=== PATIENT | female | born 1940 | race Caucasian/White ===

== ENCOUNTER 2017-01-16 15:20 | Observation (INO) | payer OTHER ==
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
[2017-01-16 15:40] LABS: PLATELET COUNT 249 10^3/uL (150-400)
[2017-01-16 15:46] LABS: INR 0.97 (0.83-1.16); PROTIME(PATIENT) 12.8 SEC (12.0-15.0)
[2017-01-16] MEDS ORDERED: ONDANSETRON 4 MG/2 ML VIAL IVP ONE ×2 (17:51→17:53)
[2017-01-16] MEDS ORDERED: ONDANSETRON 4 MG/2 ML VIAL ONE (17:52)
[2017-01-16] MEDS ORDERED: NS 1,000 ML IV ONE (17:53)
[2017-01-16] MEDS ORDERED: ONDANSETRON 4 MG/2 ML VIAL IVP PRN (21:34)
[2017-01-16] MEDS ORDERED: HYDROCODONE/APAP 5/325 TAB PO PRN (21:34)
[2017-01-16] MEDS ORDERED: HYDROmorphone HCL/NS/PF 0.4 MG/2 ML SYR IVP PRN (21:34)
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
[2017-01-16] MEDS ORDERED: D5W 1/2 NS W/ 20 KCl/L 1,000 ML IV SCH (21:45)
[2017-01-17 05:22] LABS: PLATELET COUNT 205 10^3/uL (150-400)
[2017-01-17 16:07] VITALS: BP 146/81; PULSE 77; RESP 16; TEMP 98.6; O2SAT 93
--- NOTE | 2017-01-17 17:09 | ASMTCMCOM ---
CM Note CM Note Notes: Pt medically stable for d/c, no CM d/c needs identified. Date Signed: 01/17/2017 05:08 PM Electronically Signed By:CHONG Hedrick
--- NOTE | 2017-01-17 17:09 | ASMTCMCOM ---
CM Note CM Note Notes: Pt medically stable for d/c, no CM d/c needs identified. Date Signed: 01/17/2017 05:08 PM Electronically Signed By:CHONG Hedrick
--- NOTE | 2017-01-17 17:09 | ASMTCMCOM ---
CM Note CM Note Notes: Pt medically stable for d/c, no CM d/c needs identified. Date Signed: 01/17/2017 05:08 PM Electronically Signed By:CHONG Hedrick
--- NOTE | 2017-01-18 14:23 | ASDISCHSUM ---
Discharge Information Plan Status:Home with No Needs Medically Cleared to Leave: Discharge Date:01/17/2017 05:34 PM CM D/C Disposition:Home, Routine, Self-Care ADT D/C Disposition:Home, Routine, Self-Care Projected Discharge Date:01/17/2017 05:34 PM Transportation at D/C: Discharge Delay Reason: Follow-Up Date:01/17/2017 05:34 PM Discharge Slot: Final Diagnosis: Placement Information Patient Contact Information Contact Name:ROXIE Relationship: Address:[address] Work Phone: [place] [facility] Alternate Phone: [facility]/Zip Code:[place] [address] Email: Financial Information Financial Class:Commercial Primary Plan Desc:[employer] Primary Plan Number:UNK Secondary Plan Desc:[employer] Secondary Plan Number:[id number] Assessment Information [facility] CM Progress Note CM Note CM Note Notes: Pt medically stable for d/c, no CM d/c needs identified. Date Signed: 01/17/2017 05:08 PM Electronically Signed By:CHONG Hedrick Intervention Information
--- NOTE | 2017-01-18 14:23 | ASDISCHSUM ---
Discharge Information Plan Status:Home with No Needs Medically Cleared to Leave: Discharge Date:01/17/2017 05:34 PM CM D/C Disposition:Home, Routine, Self-Care ADT D/C Disposition:Home, Routine, Self-Care Projected Discharge Date:01/17/2017 05:34 PM Transportation at D/C: Discharge Delay Reason: Follow-Up Date:01/17/2017 05:34 PM Discharge Slot: Final Diagnosis: Placement Information Patient Contact Information Contact Name:ROXIE Relationship: Address:[address] Work Phone: [place] [facility] Alternate Phone: [facility]/Zip Code:[place] [address] Email: Financial Information Financial Class:Commercial Primary Plan Desc:[employer] Primary Plan Number:UNK Secondary Plan Desc:[employer] Secondary Plan Number:[id number] Assessment Information [facility] CM Progress Note CM Note CM Note Notes: Pt medically stable for d/c, no CM d/c needs identified. Date Signed: 01/17/2017 05:08 PM Electronically Signed By:CHONG Hedrick Intervention Information
--- NOTE | 2017-01-18 14:23 | ASDISCHSUM ---
Discharge Information Plan Status:Home with No Needs Medically Cleared to Leave: Discharge Date:01/17/2017 05:34 PM CM D/C Disposition:Home, Routine, Self-Care ADT D/C Disposition:Home, Routine, Self-Care Projected Discharge Date:01/17/2017 05:34 PM Transportation at D/C: Discharge Delay Reason: Follow-Up Date:01/17/2017 05:34 PM Discharge Slot: Final Diagnosis: Placement Information Patient Contact Information Contact Name:ROXIE Relationship: Address:[address] Work Phone: [place] [facility] Alternate Phone: [facility]/Zip Code:[place] [address] Email: Financial Information Financial Class:Commercial Primary Plan Desc:[employer] Primary Plan Number:UNK Secondary Plan Desc:[employer] Secondary Plan Number:[id number] Assessment Information [facility] CM Progress Note CM Note CM Note Notes: Pt medically stable for d/c, no CM d/c needs identified. Date Signed: 01/17/2017 05:08 PM Electronically Signed By:CHONG Hedrick Intervention Information
== END 2017-01-17 17:34 | disposition home or self-care (01) ==
LOC: EDBD → EDUNIT# → F3N 20:51
PROVIDERS: ADMIT Surgery; ATTEND Surgery
DX: S00.83XA Contusion of other part of head, initial encounter (principal); S39.012A Strain of muscle, fascia and tendon of lower back, initial encounter; V43.52XA Car driver injured in collision with other type car in traffic accident, initial encounter; R40.2411 Glasgow coma scale score 13-15, in the field [EMT or ambulance]; K59.00 Constipation, unspecified; M43.12 Spondylolisthesis, cervical region; M43.14 Spondylolisthesis, thoracic region
CPT/HCPCS: 70450; 71010; 72125; 72132; 74177; 92523; 97116; 97161; 97166; G0378; 82947-QW; G0390; J2405